=== PATIENT | male | born 1975 | race Caucasian/White ===

== ENCOUNTER 2017-10-23 10:27 | Emergency (ER) | payer BC, OTHER ==
--- NOTE | 2017-10-23 10:52 | ED Physician Documentation ---
Upper Respiratory Symptoms - HISTORIAN Historian: patient - HPI Stated Complaint: generalized ache Chief Complaint: Cough/ Upper Respiratory Additional Information: fevr body aches, slight cough x 2 days Onset: days ago Duration: constant Context: multiple patients, same sx. denies: recent foreign travel, insect bite (s) Severity: mild Associated Symptoms: fever, chills, hoarseness. denies: sore throat, productive cough, shortness of breath Worsened by Deep Breath: No Further Comments: yes - ROS CONST/EYES: denies: weakness CVS/RESP: none LYMPH: denies: leg swelling, rash GI/: none NEURO/PSYCH: denies: fainting, dizziness MS/SKIN: joint pain, muscle aches. denies: rash - PAST HX Lung Disease: none PE Risk Factors: none Surgeries/Procedures: other (ortho) Immunizations: UTD Allergies/Adverse Reactions: Allergies Allergy/AdvReac Type Severity Reaction Status Date / Time No Known Allergies Allergy Verified 10/23/17 11:03 Home Medications: Ambulatory Orders Medication Instructions Recorded NK [NK] 10/23/17 - SOCIAL HX Smoking History: cigarettes, greater than 1 pack/day Alcohol Use: none Drug Use: none - FAMILY HX Family History: none - VITAL SIGNS Vital Signs: Vital Signs Temp Pulse Resp BP Pulse Ox 101.6 F H 111 H 20 131/86 94 10/23/17 10:28 10/23/17 10:28 10/23/17 10:28 10/23/17 10:28 10/23/17 10:28 - REVIEWED ASSESSMENTS Nursing Assessment Reviewed: Yes Vitals Reviewed: Yes ED Results Lab/Radiology - Radiology Radiology Impressions: CXR mild right infiltrate - Orders Orders: ED Orders Category Date Time Status CHEST P.A.&LAT 2 VIEWS [RAD] Stat Exams 10/23/17 Taken Ibuprofen [Advil] Med 10/23/17 10:47 Discontinued 400 mg PO NOW ONE Oxygen Daily Oxygen 10/23/17 11:00 Ordered Upper Respiratory Symptoms - EXAM General Appearance: no acute distress, alert EENT: eyes nml inspection, nml ENT inspection, lids & conjunct. nml, pharynx nml Neck: normal inspection, thyroid normal, supple. No: lymphadenopathy Respiratory: no resp. distress, breath sounds nml, no pain on inspiration, speaks full sentences. No: wheezes, rales, rhonchi Abdomen: non-tender CVS: tachycardia Skin: color nml, no rash, warm,dry Extremities: non-tender, normal range of motion, no evidence of injury Neuro/Psych: oriented x3, neuro intact, mood/affect nml Discharge Clincal Impression: Walking pneumonia, Viral URI Referrals: Primary Doctor,No [Primary Care Provider] - 2 Days Condition: Stable Disposition: 01 HOME, SELF-CARE Decision to Admit: NO Date of Decison to Admit: 10/23/17 Decision Time: 11:29
[2017-10-23] MEDS: IBUPROFEN 400 MG TABLET PO ONE (10:57)
--- NOTE | 2017-10-23 11:36 | Diagnostic Imaging Report ---
LUIS FELIPE BANKS [facility] [id number] [address] [place], [place]. 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 History: FEVER AND COUGH X 2 DAYS (Hx) / FEVER, COUGH (DICOM Hx) / FEVER, COUGH (Pt comments) Comparison exam: None provided. Findings: PA lateral chest demonstrate a normal cardiac and mediastinal silhouette. Mild parenchymal haziness right midlung. No blunting of the costophrenic margins. Osseous structures are appropriate for age. Impression: Mild right middle lung infiltrate. No effusion. Electronically signed on Oct 23, 2017 11:15:56 AM DREDGE PUMP OPERATOR by: Marcio ABBASI
[2017-10-23] MEDS: cefTRIAXone SODIUM 1 GM VIAL IM ONE (11:55)
[2017-10-23] MEDS: methylPREDNISolone SOD SUCC 125 MG/2 ML VIAL IM ONE (11:55)
[2017-10-23] MEDS: Lidocaine 1% 5ml(IM or SUTURE)(PAIN CLINIC) ONE (11:55)
[2017-10-23 12:10] VITALS: BP 112/81
== END 2017-10-23 12:08 | disposition home or self-care (01) ==
LOC: ED 10:27
DX: J18.8 Other pneumonia, unspecified organism (principal); J06.9 Acute upper respiratory infection, unspecified
CPT/HCPCS: 71020; J0696; J2930; 71046; 96372; 99283